=== PATIENT | male | born 1940 | race Caucasian/White ===

== ENCOUNTER 2016-09-02 10:48 | Day surgery (SDC) | payer MEDICARE, OTHER ==
[~2016-09-02] VITALS: Ht 180.3 cm; Wt 47.5 kg
[~2016-09-02 10:48] MED LIST: CARI350T14 PO; CHOL500050 PO; CYAN100028 PO; FAMO-79 PO; FERR325T20 PO; FOLI-17 PO; HYDR-3240 PO; LACT1CAP35 PO; MIRT15TA PO; MV-M1TAB3 PO; NICO1PAT4 TD; OMEP20TA62 PO; ONDA4TAB10 PO; SENN1TAB7 PO; THIA100T10 PO
[2016-09-02] MEDS ORDERED: LACTATED RINGERS 1,000 ML IV SCH (11:42)
[2016-09-02 11:46] VITALS: BP 113/78
[2016-09-02] MEDS ORDERED: PLEASE ENTER HEIGHT AND WEIGHT MC SCH (12:00)
[2016-09-02] MEDS ORDERED: CHLORHEXIDINE MOUTHWASH 15 ML UDC ONE (12:12)
[2016-09-02] MEDS ORDERED: ROCURONIUM 10 MG/ML ONE (13:06)
[2016-09-02] MEDS ORDERED: SUCCINYLCHOLINE 20 MG/ML, 10ML ONE (13:06)
[2016-09-02] MEDS ORDERED: ONDANSETRON 2MG/ML, 2ML ONE (13:06)
[2016-09-02] MEDS ORDERED: PROPOFOL 10 MG/ML, 20ML ONE (13:06)
[2016-09-02] MEDS ORDERED: OXYcodone 5 MG/5 ML ORAL.SOL UDC PO PRN (13:30)
[2016-09-02] MEDS ORDERED: ONDANSETRON 2MG/ML, 2ML IVPush PRN (13:30)
[2016-09-02] MEDS ORDERED: hydrALAzine 20 MG/ML, 1ML IV PRN (13:30)
[2016-09-02] MEDS ORDERED: LABETALOL 5MG/ML, 20ML IV PRN (13:30)
[2016-09-02] MEDS ORDERED: FENTANYL PF 100 MCG/2ML IV PRN (13:30)
[2016-09-02] MEDS ORDERED: HYDROmorphone 1 MG/ML, 1ML IV PRN (13:30)
== END 2016-09-02 15:45 ==
LOC: OUT 10:48
PROVIDERS: ATTEND Internal Medicine Gastroenterology
DX: K22.2 Esophageal obstruction (principal); K20.9 Esophagitis, unspecified; K21.9 Gastro-esophageal reflux disease without esophagitis; Z87.891 Personal history of nicotine dependence; Z88.8 Allergy status to other drugs, medicaments and biological substances
CPT/HCPCS: 43239; 43248; 43259; 88305; C1725; J0330; J2405; J2704